=== PATIENT | male | born 1970 | race Caucasian/White ===

== ENCOUNTER 2023-01-18 21:55 | Outpatient (REF) | payer OTHER, SELFPAY ==
[2023-01-18 22:28] LABS: Appearance Urine Clear (Clear); Bilirubin Urine Negative (Negative); Blood Urine 1+ (Negative); Color Urine Yellow (Yellow); Glucose Urine Negative (Negative); Ketones Urine Negative (Negative); Leukocyte Esterase Urine Negative (Negative); Nitrite Urine Negative (Negative); Protein Urine Negative (Negative); Urobilinogen Urine 0.2 (0.2-1.0); pH Urine 5.5 (5.0-8.5)
[2023-01-18 22:44] LABS: RBC Urine 0-2 (0-2); Squamous Epithelial Cell Urine Few (None-Few); WBC Urine 0-2 (0-5)
== END 2023-01-18 21:56 | disposition home or self-care (01) ==
LOC: NPINS 21:55
PROVIDERS: PCP Internal Medicine
DX: R97.20 Elevated prostate specific antigen [PSA] (principal)
CPT/HCPCS: 81003; 81015; 87086

== ENCOUNTER 2023-04-03 14:01 | Outpatient (REF) | payer OTHER, SELFPAY | END 2023-04-03 14:02 | disposition home or self-care (01) | LOC: NPINS 14:01 | PROVIDERS: PCP Internal Medicine; Visit Provider Urology | DX: R97.20 Elevated prostate specific antigen [PSA] (principal); R39.89 Other symptoms and signs involving the genitourinary system | CPT/HCPCS: 87086 ==

== ENCOUNTER 2023-06-11 22:28 | Outpatient (REF) | payer OTHER, SELFPAY ==
[2023-06-11 23:19] LABS: Free T4 Free Thyroxine* 1.07 ng/dL (0.70-1.85)
== END 2023-06-11 22:29 | disposition home or self-care (01) ==
LOC: NPINS 22:28
PROVIDERS: PCP Internal Medicine
DX: E05.00 Thyrotoxicosis with diffuse goiter without thyrotoxic crisis or storm (principal)
CPT/HCPCS: 84439; 84443

== ENCOUNTER 2023-07-27 13:00 | Outpatient (CLI) | payer OTHER, SELFPAY | END 2023-07-27 13:01 | disposition home or self-care (01) | LOC: NFLDREF 08-02 16:05 | PROVIDERS: PCP Internal Medicine; Referring Provider Internal Medicine; Visit Provider Internal Medicine | DX: Z12.5 Encounter for screening for malignant neoplasm of prostate (principal) | CPT/HCPCS: G0103 ==

== ENCOUNTER 2023-08-30 13:03 | Outpatient (CLI) | payer OTHER, SELFPAY | END 2023-08-30 13:04 | disposition home or self-care (01) | LOC: NFLDREF 08-31 07:23 | PROVIDERS: PCP Internal Medicine; Referring Provider Internal Medicine; Visit Provider Internal Medicine | DX: R97.20 Elevated prostate specific antigen [PSA] (principal) | CPT/HCPCS: G0103 ==

== ENCOUNTER 2023-11-30 09:02 | Outpatient (CLI) | payer OTHER, SELFPAY | END 2023-11-30 09:03 | disposition home or self-care (01) | LOC: NFLDREF 12-20 05:57 | PROVIDERS: PCP Internal Medicine; Referring Provider Internal Medicine; Visit Provider Internal Medicine | DX: Z00.00 Encounter for general adult medical examination without abnormal findings (principal); E78.5 Hyperlipidemia, unspecified; R97.20 Elevated prostate specific antigen [PSA]; I10 Essential (primary) hypertension | CPT/HCPCS: 80053; 80061 ==

== ENCOUNTER 2023-12-05 14:03 | Outpatient (CLI) | payer OTHER, SELFPAY | END 2023-12-05 14:04 | disposition home or self-care (01) | PROVIDERS: PCP Internal Medicine; Visit Provider Internal Medicine | DX: Z00.00 Encounter for general adult medical examination without abnormal findings (principal); E06.9 Thyroiditis, unspecified; I10 Essential (primary) hypertension; E78.5 Hyperlipidemia, unspecified; R73.03 Prediabetes; R97.20 Elevated prostate specific antigen [PSA]; M19.90 Unspecified osteoarthritis, unspecified site; F41.9 Anxiety disorder, unspecified | CPT/HCPCS: 84443; G0103 ==

== ENCOUNTER 2025-01-22 13:11 | Outpatient (CLI) | payer OTHER, SELFPAY | END 2025-01-22 13:12 | disposition home or self-care (01) | PROVIDERS: PCP Internal Medicine; Visit Provider Internal Medicine | DX: E06.9 Thyroiditis, unspecified (principal); Z12.5 Encounter for screening for malignant neoplasm of prostate | CPT/HCPCS: 84443; G0103 ==